=== PATIENT | female | born 1980 | race Hispanic/Latino ===

== ENCOUNTER 2017-10-18 11:55 | Inpatient (IN) | payer BC ==
[2017-10-18] MEDS ORDERED: Ondansetron HCl/PF 4 MG/2 ML Vial IVP PRN ×2 (12:23→18:48)
[2017-10-18] MEDS ORDERED: Ibuprofen 800 MG TAB PO PRN (12:23)
[2017-10-18] MEDS ORDERED: Acetaminophen 500 MG TAB PO PRN (12:23)
[2017-10-18] MEDS ORDERED: Promethazine HCl 25 MG/ML VIAL IM PRN ×2 (12:23→18:48)
[2017-10-18] MEDS ORDERED: Zolpidem Tartrate 5 MG TAB PO PRN (12:23)
[2017-10-18] MEDS ORDERED: LR / Pitocin 40 units/1000 ml 1,000 ML IV PRN (12:23)
[2017-10-18] MEDS ORDERED: Lidocaine 1% (PF) 30 ML VIAL SC PRN (12:23)
[2017-10-18] MEDS ORDERED: Misoprostol 200 MCG TAB ONE (12:53)
[2017-10-18] MEDS ORDERED: Sodium Chloride 0.9% 10 ML ONE (12:53)
[2017-10-18 13:34] VITALS: BMI 31.4
[2017-10-18 13:36] LABS: Hematocrit 32.3 % (36.0-47.0); Red Blood Cell (RBC) Count 3.35 mill/uL (4.20-5.40); White Blood Cell (WBC) Count 8.2 thou/uL (4.8-10.8)
[2017-10-18 13:44] LABS: PTT 28.7 SEC (22.9-36.1); Prothrombin Time 12.5 SEC (12.0-14.7)
[2017-10-18] MEDS ORDERED: Misoprostol 200 MCG TAB FS SCH (13:45)
--- NOTE | 2017-10-18 14:55 | PDOC.LDHP ---
Labor and Delivery H&P Chief complaint: scheduled induction HPI: 37 y/o WF A1 with edc 02/20 who was noted to have IUFD today at [facility] referral visit with Dr Neeta Landrum. She was referred for IUGR and hyperechoic bowel noted on sono 10/12..She has normal screening materniti 21 but AFP at 17 weeks was elevated at 3.074.. Sono showed no evidence of ONTD on 09/27.. Current gestational age (weeks): 19 Due date: 02/20/18 Dating criteria: last menstrual period Grav: 3 Para: 1 OB History Details: 2006 [facility] 2015 sab Current complications: other (as per hpi) Abnormal US findings: Yes Past Medical History: hypothyroidism Current medications: pre-james vitamins, other (synthroid 75 mcg/d) Previous surgical history: none Allergies/Adverse Reactions: Allergies Allergy/AdvReac Type Severity Reaction Status Date / Time No Known Allergies Allergy Verified 10/18/17 13:28 - Physical Exam General: NAD, resting, breathing through contractions, other Heart: RRR Lungs: CTAB Abdomen: gravid Extremeties: no edema - OB Labs Blood type: O RH: positive Antibody Screen: negative HIV: negative RPR: negative HEPSAg: negative Urine drug screen: not done Rubella: immune (37 y/o with 19 week iufd. Abnormal AFP with hyperechoic bowel possibly indicating triploidy with iugr. cytotec induction MOOSE testing. placental pathology and chromosomal microarray of placenta and tissue. Hypothyroidism repleted.)
[2017-10-18] MEDS: Misoprostol 200 MCG TAB FS PRN ×3 (17:11→23:35)
[2017-10-18] MEDS ORDERED: Fentanyl 4 mcg/Marc 0.1% Cadd 100 ML ONE (18:03)
[2017-10-18] MEDS: Lactated Ringer's 1,000 ML IV SCH ×2 (18:11→19:05)
[2017-10-18] MEDS ORDERED: Acetaminophen 325 MG TAB PO PRN (18:48)
[2017-10-18] MEDS ORDERED: Eucerin (Mineral Oil/Petrolatum,White) 30 gm Jar TOP PRN (18:48)
[2017-10-18] MEDS ORDERED: Lactated Ringer's 500 ML IV PRN (18:48)
[2017-10-18] MEDS ORDERED: Naloxone HCl 0.4 mg/ml Vial IVP PRN ×2 (18:48)
[2017-10-18] MEDS ORDERED: diphenhydrAMINE 50 MG/ML VIAL IVP PRN (18:48)
[2017-10-18] MEDS ORDERED: ePHEDrine/0.9% NaCl/PF SYRINGE 50 mg/10 ml SLOW IVP PRN (18:48)
[2017-10-18] MEDS ORDERED: Communication Order-Pharmacy FS SCH (19:00)
[2017-10-18] MEDS ORDERED: Fentanyl 4mcg/Marcaine 0.1% Cassette 100 ML EPIDURAL SCH (19:00)
[2017-10-18] MEDS ORDERED: Bupivacaine 0.25% HCL 30 ML VIAL ONE (21:03)
[2017-10-19] MEDS ORDERED: Misoprostol 200 MCG TAB ONE ×2 (01:56)
[2017-10-19] MEDS: Misoprostol 200 MCG TAB PO SCH ×2 (02:00→06:03)
[2017-10-19] MEDS ORDERED: diphenhydrAMINE 25 MG CAP PO PRN (02:02)
[2017-10-19] MEDS ORDERED: Adacel (T-DAP) 0.5 ML VIAL IM ONE (02:02)
[2017-10-19] MEDS ORDERED: Preparation H Ointment 28 GM TUBE PR PRN (02:02)
[2017-10-19] MEDS ORDERED: traMADol HCl 50 MG TAB PO PRN (02:02)
--- NOTE | 2017-10-19 02:08 | PDOC.LDHP ---
Labor and Delivery H&P Allergies/Adverse Reactions: Allergies Allergy/AdvReac Type Severity Reaction Status Date / Time No Known Allergies Allergy Verified 10/18/17 13:28
--- NOTE | 2017-10-19 02:10 | PDOC.OPDEL ---
OB Operative/Delivery Note Delivery Dr/Surgeon: BASSEM Pre-Delivery Diagnosis: medically indicated induction Procedure/Post Delivery Dx: spontaneous vaginal delivery Weeks gestation: 22 Anesthesia: epidural - Findings A Sex: male Weight: 12.699 oz - 1 min: 0 - 5 min: 0 - Additional Findings/Plan Placenta delivered: spontaneous Repaired Obstetrical Laceration: none Estimated blood loss: 200ML Post delivery plan: routine recovery
[2017-10-19 03:23] VITALS: BP 93/47
[2017-10-19] MEDS ORDERED: Ibuprofen 800 MG TAB PO SCH (06:00)
--- NOTE | 2017-10-19 07:46 | PDOC.PP ---
Post Progress Note Post Day #: 1 PO intake tolerated: yes Flatus: yes Ambulation: yes Vital Signs (12 hours) Temp Pulse Resp BP BP 10/19/17 02:02 99.3 F 64 18 93/47 L 10/19/17 00:00 99.4 F 67 18 113/59 L Weight Weight 195 lb - Physical Examination General: NAD Cardiovascular: no m/r/g, RRR Respiratory: clear to auscultation bilaterally, non-labored breathing Abdominal: + bowel sounds, lochia, no distention, appropriately TTP Result Diagrams: 10/18/17 13:00 Additional Labs: Post Labs Blood Type O POSITIVE 10/18/17 13:00 Hep Bs Antigen Non-Reactive S/CO (NonReactive) 10/18/17 13:00 - Assessment/Plan post day 0-1 after cytotec induction for 22 week IUFD. Clinically stable. Appropriately grieving. D/c home. f/u 3-4 weeks. OTC motrin prn. 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
[2017-10-19 08:16] VITALS: TEMP 98.9
[2017-10-21 09:53] LABS: DRVVT Ratio 0.9 Ratio (1.2 or Less); DRVVT Screen 25.7 SEC (20-50)
[2017-10-21 17:12] LABS: Beta-2-GPI IgM Autoabs <10 SMU (.); Beta-2-Glycoprotein IgA Abs <10 SAU (.); Beta-2-Glycoprotein IgG Abs <10 SGU (.)
== END 2017-10-19 09:50 | disposition home or self-care (01) | DRG 779 ==
LOC: UNDOADMIN 11:55 → L&D 11:55
PROVIDERS: ADMIT Obstetrics & Gynecology; ATTEND Obstetrics & Gynecology
PROC: 3E0P7VZ Introduction of Hormone into Female Reproductive, Via Natural or Artificial Opening (ICD-10-PCS; principal; 2017-10-19)
PROC: 10E0XZZ Delivery of Products of Conception, External Approach (ICD-10-PCS; 2017-10-19)
DX: O02.1 Missed abortion (principal); E03.9 Hypothyroidism, unspecified; Z3A.22 22 weeks gestation of pregnancy; O99.284 Endocrine, nutritional and metabolic diseases complicating childbirth
CPT/HCPCS: 85027; 85610; 85613; 85730; 86146; 86147; 86780; 87340; 88305; A4216; S0020

== ENCOUNTER 2020-08-22 07:55 | Outpatient (CLI) | payer BC, OTHER ==
[2020-08-22 18:14] LABS: SARS-CoV-2 MS2 Positive; SARS-CoV-2 N Gene Negative; SARS-CoV-2 S Gene Negative; SARS-CoV-2 by NAA Not Detected (NotDetected); SARS-CoV-2 orf1ab Negative
== END 2020-08-22 07:56 | disposition home or self-care (01) ==
LOC: LABBT 07:55
PROVIDERS: ATTEND Obstetrics & Gynecology
DX: Z20.828 Contact with and (suspected) exposure to other viral communicable diseases (principal)
CPT/HCPCS: 87635; U0003

== ENCOUNTER 2020-08-25 12:11 | Inpatient (IN) | payer BC, OTHER ==
[~2020-08-25 12:11] MED LIST: Bupivacaine/Epinephrine 0.25% 30 ML VIAL ONE
[2020-08-25] MEDS ORDERED: Misoprostol 200 MCG TAB PR PRN (20:30)
[2020-08-25] MEDS ORDERED: HYDROcodone/Acetaminophen 5/325 mg Tablet PO PRN (20:30)
[2020-08-25] MEDS ORDERED: Ibuprofen 800 MG TAB PO PRN (20:30)
[2020-08-25] MEDS ORDERED: Carboprost 250 MCG/ML AMP IM PRN (20:30)
[2020-08-25] MEDS ORDERED: Promethazine HCl 25 MG/ML VIAL IM PRN (20:30)
[2020-08-25] MEDS ORDERED: hydrALAZINE 20 MG/ML VIAL SLOW IVP PRN (20:30)
[2020-08-25] MEDS ORDERED: NS w/ Oxytocin 10 units 500 ML IV SCH (20:30)
[2020-08-25] MEDS ORDERED: Lidocaine 1% (PF) 30 ML VIAL SC PRN (20:30)
[2020-08-25] MEDS ORDERED: Acetaminophen 500 MG TAB PO PRN (20:30)
[2020-08-25] MEDS ORDERED: Diphenoxylate HCl/Atropine Tablet PO PRN ×2 (20:30)
[2020-08-25] MEDS ORDERED: Butorphanol Tartrate 1 MG/ML VIAL SLOW IVP PRN (20:30)
[2020-08-25 20:54] VITALS: BMI 33.5
[2020-08-25] MEDS: Lactated Ringer's 1,000 ML IV SCH (21:15)
[2020-08-25 21:22] LABS: Hemoglobin 10.8 g/dL (12.0-16.0); Mean Corpuscular HGB CONC 33.4 g/dL (32.0-36.0); Mean Corpuscular Volume 89.9 fL (78.0-98.0); Mean Platelet Volume 10.8 fL (7.4-10.4); Platelet Count 248 thou/uL (130-400); RBC Distribution Width 12.3 % (11.5-14.5); Red Blood Cell (RBC) Count 3.59 mill/uL (4.20-5.40); White Blood Cell (WBC) Count 8.4 thou/uL (4.8-10.8)
[2020-08-25] MEDS: Misoprostol 100 MCG TAB VAG SCH (21:26)
[2020-08-25 22:05] LABS: Syphilis Antibody Nonreactive (Nonreactive); Syphilis Antibody Index 0.04 S/CO (<1.00 Non-Reactive)
[2020-08-25] MEDS ORDERED: FLU VACC QS2020-21(6MOS UP)/PF 60 MCG/0.5 ML SYRINGE IM ONE (22:30)
[2020-08-25] MEDS ORDERED: Penicillin G Potassium 5 MILL.UNITS in Sodium Chloride 0.9% 100 ML IVPB SCH (23:00)
[2020-08-26 01:36] LABS: HBSAg Index 0.13 S/CO (0-0.99); Hep B Surf Ag Non-Reactive S/CO (NonReactive)
[2020-08-26] MEDS ORDERED: Fentanyl 4 mcg/Bup 0.1% Cadd 100 ML ONE (03:10)
[2020-08-26] MEDS ORDERED: Lactated Ringer's 500 ML IV PRN (03:59)
[2020-08-26] MEDS ORDERED: Ondansetron PF 4 MG/2 ML Vial IVP PRN (03:59)
[2020-08-26] MEDS ORDERED: diphenhydrAMINE 50 MG/ML VIAL IVP PRN (03:59)
[2020-08-26] MEDS ORDERED: Acetaminophen 325 MG TAB PO PRN (03:59)
[2020-08-26] MEDS ORDERED: Naloxone HCl 0.4 mg/ml Vial IVP PRN ×2 (03:59)
[2020-08-26] MEDS ORDERED: EPHEDRINE 25 MG/5 ML SYRINGE SLOW IVP PRN (03:59)
[2020-08-26] MEDS ORDERED: Promethazine HCl 25 MG/ML VIAL IM PRN (03:59)
[2020-08-26] MEDS ORDERED: Fentanyl 4 mcg/Bupivacaine 0.1% Cassette 100 ML EPIDURAL SCH (04:00)
[2020-08-26] MEDS ORDERED: Communication Order-Pharmacy FS SCH (04:00)
[2020-08-26] MEDS: Lactated Ringer's 1,000 ML IV SCH ×2 (05:24→17:42)
[2020-08-26] MEDS: Penicillin G 2.5 MILL.units 2.5 MILL.UNITS in Premix Bag 1 BAG IVPB SCH ×3 (05:24→17:42)
[2020-08-26] MEDS: Ondansetron PF 4 MG/2 ML Vial IVP PRN ×2 (08:58→14:35)
[2020-08-26] MEDS ORDERED: Lidocaine 1% (PF) 30 ML VIAL ONE (13:12)
[2020-08-26] MEDS ORDERED: NS / Oxytocin 40 units/1000ml 1,000 ML ONE (13:12)
[2020-08-26] MEDS: NS / Oxytocin 40 units/1000ml 1,000 ML IV PRN ×2 (15:18→15:19)
[2020-08-26] MEDS ORDERED: Bisacodyl 10 MG SUPP PR PRN (16:08)
[2020-08-26] MEDS ORDERED: hydrALAZINE 20 MG/ML VIAL SLOW IVP PRN (16:08)
[2020-08-26] MEDS ORDERED: Adacel (T-DAP) 0.5 ML SYRINGE IM ONE (16:08)
[2020-08-26] MEDS ORDERED: Benzocaine-Menthol 82.5 ML CAN TOP PRN (16:08)
[2020-08-26] MEDS ORDERED: Milk Of Magnesia 30 ML UDCUP PO PRN (16:08)
[2020-08-26] MEDS ORDERED: NS / Oxytocin 40 units/1000ml 1,000 ML IV SCH (16:15)
--- NOTE | 2020-08-26 16:30 | PDOC.OPDEL ---
OB Operative/Delivery Note Delivery Dr/Surgeon: Light Pre-Delivery Diagnosis: active labor, elective induction Procedure/Post Delivery Dx: spontaneous vaginal delivery Weeks gestation: 40 Anesthesia: epidural - Findings A Sex: female - 1 min: 8 - 5 min: 9 - Additional Findings/Plan Placenta delivered: spontaneous Repaired Obstetrical Laceration: 1st degree Estimated blood loss: 350mL Post delivery plan: routine recovery
[2020-08-26] MEDS: Misoprostol 100 MCG TAB VAG SCH (17:41)
[2020-08-26] MEDS ORDERED: Ibuprofen 800 MG TAB PO SCH (18:45)
[2020-08-26] MEDS: Ferrous Sulfate 325 MG TAB PO SCH (20:22)
[2020-08-26] MEDS: Docusate Calcium (SURFAK) 240 MG CAP PO SCH (22:44)
[2020-08-27] MEDS: Ibuprofen 800 MG TAB PO SCH ×4 (02:16→23:58)
[2020-08-27] MEDS: traMADol HCl 50 MG TAB PO PRN ×2 (05:25→11:39)
--- NOTE | 2020-08-27 08:09 | PDOC.PP ---
Post Progress Note Post Day #: 1 PO intake tolerated: yes Flatus: yes Ambulation: yes Vital Signs (12 hours) Temp Pulse Resp BP 08/27/20 05:00 98.2 F 74 14 109/61 08/26/20 23:50 97.9 F 73 15 111/66 Weight Weight 208 lb - Physical Examination Abdominal: + bowel sounds, lochia, no distention, appropriately TTP Extremities: negative homans (B) Result Diagrams: 08/25/20 21:11 Additional Labs: Post Labs Hep Bs Antigen Non-Reactive S/CO (NonReactive) 08/25/20 21:11 Blood Type O POSITIVE 08/25/20 21:11 - Assessment/Plan post day 1 from . Doing well. d/c today if baby discharbged. f/u 6 weeks.
[2020-08-27] MEDS: Ferrous Sulfate 325 MG TAB PO SCH ×2 (08:11→16:37)
[2020-08-27] MEDS: Prenatal Vitamin 1 TAB PO SCH (08:13)
[2020-08-27] MEDS: Docusate Calcium (SURFAK) 240 MG CAP PO SCH ×2 (08:13→20:23)
[2020-08-28] MEDS: traMADol HCl 50 MG TAB PO PRN (05:02)
[2020-08-28 07:58] VITALS: BP 119/68; TEMP 97.6
[2020-08-28] MEDS: Ibuprofen 800 MG TAB PO SCH (08:33)
[2020-08-28] MEDS: Docusate Calcium (SURFAK) 240 MG CAP PO SCH (08:33)
[2020-08-28] MEDS: Ferrous Sulfate 325 MG TAB PO SCH (08:37)
[2020-08-28] MEDS: Prenatal Vitamin 1 TAB PO SCH (08:37)
== END 2020-08-28 11:30 | disposition home or self-care (01) | DRG 807 ==
LOC: L&D 19:56 → 3SW 08-26 16:18 → EDSTATUS 09-13 12:11
PROVIDERS: ADMIT Obstetrics & Gynecology; ATTEND Obstetrics & Gynecology
PROC: 10E0XZZ Delivery of Products of Conception, External Approach (ICD-10-PCS; principal; 2020-08-26)
PROC: 0HQ9XZZ Repair Perineum Skin, External Approach (ICD-10-PCS; 2020-08-26)
DX: O70.0 First degree perineal laceration during delivery (principal); Z37.0 Single live birth; Z3A.40 40 weeks gestation of pregnancy; Z20.828 Contact with and (suspected) exposure to other viral communicable diseases
CPT/HCPCS: 36415; 51702; 85027; 86780; 86850; 86900; 86901; 87340; 87635; J2001; J2405; J2540; J2590; J3490; U0003